=== PATIENT | female | born 1930 | race African-American/Black ===

== ENCOUNTER 2016-12-11 18:18 | Emergency (ER) | payer MEDICARE ==
--- NOTE | 2016-12-11 19:56 | XRay Report ---
FINAL REPORT EXAM: XR WRIST 3+V RT HISTORY: right wrist bruise; Fall TECHNIQUE: Three views of the right wrist PRIORS: None. FINDINGS: The bones are diffusely demineralized and alignment is normal. The joint spaces are well-preserved. There is no evidence of acute fracture. The soft tissues are unremarkable. IMPRESSION: No evidence of acute fracture or subluxation.
[2016-12-11 22:17] VITALS: BP 174/85
--- NOTE | 2016-12-11 22:48 | Emergency Department Report ---
Entered by PATRIA MANCIA, acting as scribe for ANNA SMITH PA. ED General Adult HPI - General Chief complaint: Fall Stated complaint: BRUISE TO RT WRIST Time Seen by Provider: 12/11/16 19:22 Source: EMS Mode of arrival: Stretcher Limitations: Language Barrier, Physical Limitation - History of Present Illness Initial comments: 86 year old Niuean speaking female presents to ED for evaluation, via daughter acting as lead javascript engineer, of a fall that happen at [facility] last night. Patient's daughter states she fell off the bed and was notified by the [facility] to come to the ED. she had no loss of consciousness nor did she hit her head. Patient denies any pain, trauma, headache/ dizziness, nausea, vomiting, chest pain, numbness, or tingling. Patient is active and acting appropriate for age. NKDA. -: Last night Radiation: non-radiation Severity scale (0 -10): 0 Quality: other Consistency: now resolved Improves with: none Worsens with: none Associated Symptoms: denies other symptoms. denies: confusion, chest pain, cough, diaphoresis, fever/chills, headaches, malaise, nausea/vomiting, rash, seizure, shortness of breath, weakness Treatments Prior to Arrival: none - Related Data Home Medications Medication Instructions Recorded Confirmed Last Taken Aspirin [Aspirin BABY CHEW TAB] 81 mg PO QDAY 09/28/13 09/28/13 09/26/13 Lisinopril 10 mg PO QDAY 09/28/13 09/28/13 09/26/13 Meclizine [Antivert] 25 mg PO PRN PRN 09/28/13 09/28/13 09/26/13 Montelukast Sodium 10 mg PO QDAY 09/28/13 09/28/13 09/26/13 Ranitidine HCl [Ranitidine 150mg 150 mg PO BID 09/28/13 09/28/13 09/26/13 Cap] Simvastatin 20 mg PO HS 09/28/13 09/28/13 09/26/13 amLODIPine [Norvasc] 5 mg PO DAILY 09/28/13 09/28/13 09/26/13 glyBURIDE [Glyburide] 2.5 mg PO BID 09/28/13 09/28/13 09/26/13 Allergies Allergy/AdvReac Type Severity Reaction Status Date / Time No Known Allergies Allergy Verified 09/28/13 06:46 ED Review of Systems Comment: All other systems reviewed and negative Constitutional: denies: chills, fever Respiratory: denies: cough, shortness of breath, wheezing Cardiovascular: denies: chest pain, palpitations Gastrointestinal: denies: abdominal pain, nausea, vomiting, diarrhea Genitourinary: dysuria. denies: urgency, frequency, discharge Musculoskeletal: denies: back pain, joint swelling, arthralgia Skin: denies: rash, lesions Neurological: denies: headache, weakness, numbness, paresthesias ED Past Medical Hx - Past Medical History Hx Hypertension: Yes Hx Diabetes: Yes (type 2) Hx GERD: Yes Hx Arthritis: Yes (bilat knees) Hx Seizures: Yes (Other) Hx Dementia: Yes Additional medical history: Depression - Social History Smoking Status: Unknown if ever smoked - Medications Home Medications: Home Medications Medication Instructions Recorded Confirmed Last Taken Type Aspirin [Aspirin BABY CHEW TAB] 81 mg PO QDAY 09/28/13 09/28/13 09/26/13 History Lisinopril 10 mg PO QDAY 09/28/13 09/28/13 09/26/13 History Meclizine [Antivert] 25 mg PO PRN PRN 09/28/13 09/28/13 09/26/13 History Montelukast Sodium 10 mg PO QDAY 09/28/13 09/28/13 09/26/13 History Ranitidine HCl [Ranitidine 150mg 150 mg PO BID 09/28/13 09/28/13 09/26/13 History Cap] Simvastatin 20 mg PO HS 09/28/13 09/28/13 09/26/13 History amLODIPine [Norvasc] 5 mg PO DAILY 09/28/13 09/28/13 09/26/13 History glyBURIDE [Glyburide] 2.5 mg PO BID 09/28/13 09/28/13 09/26/13 History ED Physical Exam - General Limitations: Language Barrier, Physical Limitation - Other Other exam information: GENERAL: Patient is alert and oriented x 3. No apparent distress, normal gait, atraumatic. HEAD: Head is normocephalic and atraumatic. NECK: Supple. Non edematous, No lymphadenopathy or thyromegaly. LUNGS: Symmetrical with respiration, no wheezing, no rales, no crackles, CTAB HEART: Regular rate and rhythm with normal S1/S2 present. No murmurs, rubs, or gallops. ABDOMEN: Soft, nondistended. Nontender to palpation on all quadrants. No organomegaly was noted. Positive bowel sounds. No CVA tenderness. BACK: normal inspection, full ROM. No CVA tenderness, no paraspinal tenderness, no vertebral tenderness EXTREMITIES/MUSCULOSKELETAL: No cyanosis, clubbing, rash, lesions or edema. Full ROM bilaterally. UE/LE Pulses 2+ bilaterally. LE and UE 4+ strength bilaterally. No bruising seen on any of the joints, no swelling, no bleeding SKIN: Warm and dry. No lesions, ulceration or induration present NEUROLOGIC: No focal deficit., Cranial nerves II - XII are grossly intact. No loss of sensation. No facial droop. PSYCHIATRIC: Mood is congruent with affect. ED Course Vital Signs 12/11/16 12/11/16 12/11/16 18:22 18:49 20:50 Temperature 99.1 F 99.1 F Pulse Rate 92 H 92 H 65 Respiratory 18 18 18 Rate Blood Pressure 181/95 Blood Pressure 181/95 174/85 [Right] O2 Sat by Pulse 98 98 97 Oximetry ED Medical Decision Making - Radiology Data Radiology results: report reviewed, image reviewed FINAL REPORT EXAM: XR WRIST 3+V RT HISTORY: right wrist bruise; Fall TECHNIQUE: Three views of the right wrist PRIORS: None. FINDINGS: The bones are diffusely demineralized and alignment is normal. The joint spaces are well-preserved. There is no evidence of acute fracture. The soft tissues are unremarkable. IMPRESSION: No evidence of acute fracture or subluxation. Transcribed By: MIGUEL Dictated By: HERNANDEZ OJEDA MD Electronically Authenticated By: HERNANDEZ OJEDA MD Signed Date/Time: 12/11/161950 - Medical Decision Making 86-year-old female presents status post fall ED course: Patient reports no injuries. X-ray of the wrist obtained. X-ray normal no fractures or dislocation Discussed with application's daughter x-ray results. Patient's daughter states mother states she is fine and asymptomatic and can be returned back to the [facility] Mildly elevated blood pressure. Her pressure did come down prior to discharge Patient's daughter states she takes medication which is at the penitentiary and has not taken today All other vital signs are normal she is in no acute distress she is actively eating, laughing, talking in Niuean with no problems. ED Disposition Clinical Impression: Fall at [facility] Disposition: DC- TO HOME OR SELFCARE Is pt being admited?: No Does the pt Need Aspirin: No Condition: Stable Instructions: Fall Prevention for Older Adults (ED), Fall Prevention (ED) Additional Instructions: Follow-up with their primary care physician. If any new symptoms arise return to ED. Referrals: ALEX CHUA MD [Primary Care Provider] - 3-5 Days Forms: Accompanied Note, Work/School Release Form(ED) Time of Disposition: 20:03 Print Language: MALAGASY This documentation as recorded by the BLANCHE stacy PEARL,accurately reflects the service I personally performed and the decisions made by ,ANNA SMITH PA.
== END 2016-12-11 20:55 | disposition home or self-care (01) ==
LOC: ED 18:18
DX: M25.531 Pain in right wrist (principal); I10 Essential (primary) hypertension; E11.9 Type 2 diabetes mellitus without complications; K21.9 Gastro-esophageal reflux disease without esophagitis; M19.90 Unspecified osteoarthritis, unspecified site; F03.90 Unspecified dementia, unspecified severity, without behavioral disturbance, psychotic disturbance, mood disturbance, and anxiety; F32.9 Major depressive disorder, single episode, unspecified; Z79.82 Long term (current) use of aspirin; W19.XXXA Unspecified fall, initial encounter; Y93.89 Activity, other specified; Y99.9 Unspecified external cause status; Y92.89 Other specified places as the place of occurrence of the external cause